=== PATIENT | female | born 1955 | race American Indian/Alaskan Native ===

== ENCOUNTER 2017-02-25 09:00 | Emergency (ER) | payer OTHER ==
[2017-02-25 09:11] VITALS: BP 167/102
--- NOTE | 2017-02-25 09:26 | Emergency Department Report ---
Chief Complaint: Dizziness Stated Complaint: DIZZINESS Time Seen by Provider: 02/25/17 09:25 - HPI History of Present Illness: Patient care with her son and her son reports that patient woke up this morning and and feeling dizzy like the room is spinning around. Denies any headache. Denies any nausea or vomiting. Complaining of pain that is in her left shoulder. Blood pressures elevated and she is does not have any history of any medical problems. Denies any blurred vision. Denies any nausea or vomiting. Denies any chest pain or shortness of breath. - ROS Review of Systems: All systems are negative unless stated in HPI above - Exam Vital Signs: Vital Signs 02/25/17 09:08 Temperature 97 F L Pulse Rate 92 H Respiratory 22 Rate Blood Pressure 167/102 O2 Sat by Pulse 100 Oximetry Physical Exam: Gen.: This is a 61-year-old female well-nourished well-developed and nontoxic in appearance. Mini neurological exam: No facial drooping, GCS of 15, alert and oriented 3. Cardiovascular: S1, S2. Regular rate and rhythm MSE screening note: Focused history and physical exam performed. Due to findings the following was ordered:See mdm ED Medical Decision Making - Medical Decision Making MDM: Patient screened by provider in triage area. Appropriate protocol initiated and patient to be seen in main ED ED Disposition for MSE Condition: Stable
--- NOTE | 2017-02-25 09:54 | XRay Report ---
ROUTINE CHEST, TWO VIEWS: HISTORY: Short of breath. The trachea, heart, mediastinal contour, lung arcos and bony thorax are unremarkable. IMPRESSION: Unremarkable chest x-ray.
--- NOTE | 2017-02-25 11:05 | Cat Scan Report ---
CT HEAD WITHOUT CONTRAST: HISTORY: New onset dizziness, hypertension. Serial contiguous axial images were obtained through the cranium. Intravenous contrast material was not administered. The ventricles are normal in size and appearance. There is no mass effect or midline shift. No areas of abnormally increased or decreased attenuation are seen. No mass lesion is seen. The mastoid air cells and visualized portions of the sinuses are normal. IMPRESSION: Cranial CT scan within normal limits.
[2017-02-25 11:24] LABS: Anion Gap 18 mmol/L; Blood Urea Nitrogen 8 mg/dL (7-17); Calcium 9.5 mg/dL (8.4-10.2); Carbon Dioxide 25 mmol/L (22-30); Chloride 104.1 mmol/L (98-107); Glucose 101 mg/dL (65-100); Potassium 4.4 mmol/L (3.6-5.0); Sodium 143 mmol/L (137-145)
[2017-02-25 11:33] LABS: Red Blood Count 4.42 M/mm3 (3.65-5.03)
[2017-02-25 11:34] LABS: Basophils % (Auto) 1.2 % (0.0-1.8); Eosinophils % (Auto) 2.8 % (0.0-4.3); Hematocrit 33.9 % (30.3-42.9); Hemoglobin 10.6 gm/dl (10.1-14.3); Mean Corpuscular HGB Conc 31 % (30-34); Mean Corpuscular Volume 77 fl (79-97); Platelet Count 429 K/mm3 (140-440)
[2017-02-25 11:37] LABS: Mean Corpuscular Hemoglobin 24 pg (28-32); Red Cell Distribution Width 20.5 % (13.2-15.2)
[2017-02-25 22:55] LABS: Bacteria,Urine 1+ /HPF (Negative); Bilirubin,Urine NEG (Negative); Blood,Urine NEG (Negative); Ketones,Urine NEG (Negative); Leukocyte Esterase,Urine MOD (Negative); Mucus,Urine FEW /HPF; Nitrite,Urine NEG (Negative); Protein,Urine <15 mg/dL mg/dL (Negative); Urobilinogen,Urine < 2.0 mg/dL (<2.0)
== END 2017-02-25 11:00 | disposition left against medical advice (07) ==
LOC: ED 09:00
DX: R42 Dizziness and giddiness (principal); M25.512 Pain in left shoulder; Z53.21 Procedure and treatment not carried out due to patient leaving prior to being seen by health care provider
CPT/HCPCS: 36415; 70450; 71020; 80048; 81001; 84484; 85025; 93005; 93010

== ENCOUNTER 2017-02-25 21:19 | Inpatient (IN) | payer OTHER ==
[2017-02-25 22:17] LABS: Basophils % (Auto) 1.3 % (0.0-1.8); Eosinophils % (Auto) 2.6 % (0.0-4.3); Hematocrit 34.3 % (30.3-42.9); Hemoglobin 10.9 gm/dl (10.1-14.3); Mean Corpuscular HGB Conc 32 % (30-34); Mean Corpuscular Volume 77 fl (79-97); Platelet Count 421 K/mm3 (140-440); Red Blood Count 4.46 M/mm3 (3.65-5.03)
[2017-02-25 22:21] LABS: Mean Corpuscular Hemoglobin 24 pg (28-32)
[2017-02-25 22:30] LABS: Anion Gap 20 mmol/L; BUN/Creatinine Ratio 10; Blood Urea Nitrogen 8 mg/dL (7-17); Calcium 9.4 mg/dL (8.4-10.2); Carbon Dioxide 22 mmol/L (22-30); Chloride 99.7 mmol/L (98-107); Glucose 93 mg/dL (65-100); Potassium 4.5 mmol/L (3.6-5.0); Sodium 137 mmol/L (137-145)
--- NOTE | 2017-02-26 10:28 | Emergency Department Report ---
ED Chest Pain HPI - General Chief Complaint: Dizziness Stated Complaint: DIZZINESS Time Seen by Provider: 02/26/17 09:27 Source: patient, family Mode of arrival: Ambulatory Limitations: Language Barrier - History of Present Illness Initial Comments: 61-year-old female presents to Emergency department with complaint of chest pain palpitations and dizziness. Denies fevers chills nausea vomiting. Patient states that her symptoms have been ongoing for the last 24 hours. MD Complaint: chest pain Onset: during exertion Pain Location: substernal Severity: moderate Severity scale (0 -10): 0 Improves With: nothing Worsens With: nothing Treatments Prior to Arrival: none - Related Data Home Medications Medication Instructions Recorded Confirmed Last Taken Lisinopril [Zestril TAB] 40 mg PO QDAY 02/26/17 02/26/17 Unknown Tramadol HCl [traMADol ER 100 MG] 50 mg PO BID 02/26/17 02/26/17 Unknown amLODIPine [Norvasc] 10 mg PO DAILY 02/26/17 02/26/17 Unknown Allergies Allergy/AdvReac Type Severity Reaction Status Date / Time No Known Allergies Allergy Unverified 02/25/17 09:11 Heart Score - HEART Score History: Moderately suspicious EKG: Non-specific Age: 45-65 Risk factors: 1-2 risk factors Troponin: < normal limit HEART Score: 4 - Critical Actions Critical Actions: 0-3 pts:0.9-1.7%risk of adverse cardiac event.Candidate for discharge ED Review of Systems ROS: Stated complaint: DIZZINESS Other details as noted in HPI Comment: All other systems reviewed and negative Constitutional: denies: chills, fever ENT: denies: ear pain, throat pain Respiratory: denies: cough, shortness of breath, wheezing Cardiovascular: denies: chest pain, palpitations Endocrine: no symptoms reported Gastrointestinal: denies: abdominal pain, nausea, diarrhea Genitourinary: denies: urgency, dysuria, discharge Musculoskeletal: denies: back pain, joint swelling, arthralgia Skin: denies: rash, lesions Neurological: denies: headache, weakness, paresthesias Psychiatric: denies: anxiety, depression Hematological/Lymphatic: denies: easy bleeding, easy bruising ED Past Medical Hx - Past Medical History Previous Medical History?: No - Surgical History Past Surgical History?: No - Family History Family history: no significant - Social History Smoking Status: Never Smoker Substance Use Type: None - Medications Home Medications: Home Medications Medication Instructions Recorded Confirmed Last Taken Type Lisinopril [Zestril TAB] 40 mg PO QDAY 02/26/17 02/26/17 Unknown History Tramadol HCl [traMADol ER 100 MG] 50 mg PO BID 02/26/17 02/26/17 Unknown History amLODIPine [Norvasc] 10 mg PO DAILY 02/26/17 02/26/17 Unknown History ED Physical Exam - General Limitations: Language Barrier General appearance: alert, in no apparent distress - Head Head exam: Present: atraumatic, normocephalic - Eye Eye exam: Present: normal appearance - ENT ENT exam: Present: mucous membranes moist - Neck Neck exam: Present: normal inspection - Respiratory Respiratory exam: Present: normal lung sounds bilaterally. Absent: respiratory distress - Cardiovascular Cardiovascular Exam: Present: regular rate, normal rhythm. Absent: systolic murmur, diastolic murmur, rubs, gallop - GI/Abdominal GI/Abdominal exam: Present: soft, normal bowel sounds - Extremities Exam Extremities exam: Present: normal inspection - Back Exam Back exam: Present: normal inspection - Neurological Exam Neurological exam: Present: alert, oriented X3 - Psychiatric Psychiatric exam: Present: normal affect, normal mood - Skin Skin exam: Present: warm, dry, intact, normal color. Absent: rash ED Course Vital Signs 02/25/17 02/25/17 02/26/17 21:32 21:37 09:02 Temperature 98.5 F 98.4 F 97.6 F Pulse Rate 101 H 84 90 Respiratory 18 18 18 Rate Blood Pressure 155/86 155/86 Blood Pressure 170/100 [Left] O2 Sat by Pulse 97 100 100 Oximetry 02/26/17 02/26/17 11:23 11:27 Temperature 97.8 F Pulse Rate 78 78 Respiratory 18 Rate Blood Pressure 197/81 Blood Pressure 197/81 [Left] O2 Sat by Pulse 99 Oximetry ED Medical Decision Making - Lab Data Result diagrams: 02/25/17 21:50 02/25/17 21:50 Laboratory Results - last 24 hr 02/25/17 02/25/17 02/26/17 21:50 21:50 00:13 WBC 7.0 RBC 4.46 Hgb 10.9 Hct 34.3 MCV 77 L MCH 24 L MCHC 32 RDW 21.0 H Plt Count 421 Lymph % (Auto) 32.8 [place] % (Auto) 9.4 H Eos % (Auto) 2.6 Baso % (Auto) 1.3 Lymph # 2.3 [place] # 0.7 Eos # 0.2 Baso # 0.1 Seg Neutrophils % 53.9 Seg Neutrophils # 3.8 Sodium 137 Potassium 4.5 Chloride 99.7 Carbon Dioxide 22 Anion Gap 20 BUN 8 Creatinine 0.8 D Estimated GFR > 60 BUN/Creatinine Ratio 10 Glucose 93 Calcium 9.4 Troponin T < 0.010 < 0.010 02/26/17 03:56 WBC RBC Hgb Hct MCV MCH MCHC RDW Plt Count Lymph % (Auto) [place] % (Auto) Eos % (Auto) Baso % (Auto) Lymph # [place] # Eos # Baso # Seg Neutrophils % Seg Neutrophils # Sodium Potassium Chloride Carbon Dioxide Anion Gap BUN Creatinine Estimated GFR BUN/Creatinine Ratio Glucose Calcium Troponin T < 0.010 - EKG Data -: EKG Interpreted by Me - EKG Data 02/26/17 10:31 Sinus rate at 99 normal axis normal intervals likely LVH no ST-T wave changes - Medical Decision Making 7-year-old female here with chest pain palpitations and dizziness. History is somewhat difficult to obtain and was mostly obtained from daughter. Patient has had chest pain and shortness of breath. Is unclear to me if she's had recent cardiac evaluation. Plan to treat her as a rule out ACS and admit for further evaluation and risk stratification and chest pain. Portions of this chart were dictated with dictation software. There may be dictation errors contained within this note. Critical care attestation.: If time is entered above; I have spent that time in minutes in the direct care of this critically ill patient, excluding procedure time. ED Disposition Clinical Impression: Chest pain Disposition: - OP ADMIT IP TO THIS HOSP Is pt being admited?: Yes Condition: Stable Instructions: Chest Pain (ED) Referrals: PRIMARY CARE, [Primary Care Provider] - 3-5 Days
[2017-02-26] MEDS ORDERED: ASPIRIN PO ONE (10:29)
[2017-02-26 11:07] LABS: Bilirubin,Urine NEG (Negative); Blood,Urine SM (Negative); Ketones,Urine NEG (Negative); Leukocyte Esterase,Urine LG (Negative); Nitrite,Urine NEG (Negative); Protein,Urine <15 mg/dL mg/dL (Negative); Urobilinogen,Urine < 2.0 mg/dL (<2.0)
--- NOTE | 2017-02-26 11:24 | History and Physical Report ---
<SKIP GELLER - Last Filed: 02/26/17 12:50> History of Present Illness Date of examination: 02/26/17 Date of admission: 02/26/2017 Chief complaint: Chest pain and dizziness History of present illness: Patient is a 61-year-old female with past medical history of hypertension, H.pylori and chronic left shoulder pain, who presents to emergency department for complaining of midsternal chest pain. She states that the pain began yesterday morning constant midsternal chest pain. The pain was located over her substerna somewhat in the left epigastric area. She describes the quality as a chest tightness and burning with radiation to the shoulder, arm , back, and neck. It has been a constant pain since it started yesterday. The painful episodes did not increase in intensity or severity during this time. Patient rated her pain level 5/10 at present time. Patient reported begin lightheaded, dizziness include heart palpitations. At the ED the patient was given ASA which she claims helped alleviate the pain somewhat. No aggravating factors. She denies shortness of breath, diaphoresis, nausea and vomiting during these episodes of pain. She has had no prior cardiac workup. Patient she is from [facility], she speaks limited [place] but her daughter at bedside and she speaks [place] well. Past History Past Medical History: hypertension Past Surgical History: No surgical history Social history: , lives with family. denies: smoking, alcohol abuse Family history: CAD, hypertension Medications and Allergies Allergies Allergy/AdvReac Type Severity Reaction Status Date / Time No Known Allergies Allergy Unverified 02/25/17 09:11 Home Medications Medication Instructions Recorded Confirmed Last Taken Type Lisinopril [Zestril TAB] 40 mg PO QDAY 02/26/17 02/26/17 Unknown History Tramadol HCl [traMADol ER 100 MG] 50 mg PO BID 02/26/17 02/26/17 Unknown History amLODIPine [Norvasc] 10 mg PO DAILY 02/26/17 02/26/17 Unknown History Active Meds: Active Medications Acetaminophen (Tylenol) 650 mg PO Q4H PRN PRN Reason: Pain MILD(1-3)/Fever >100.5/CHAVEZ Amlodipine Besylate (Norvasc) 10 mg PO DAILY EDUARDO Bisacodyl (Dulcolax) 10 mg FL QDAY PRN PRN Reason: Constipation unrelieved by MOM Enoxaparin Sodium (Lovenox) 40 mg SUB-Q QDAY [facility] Lisinopril (Zestril) 40 mg PO QDAY [facility] Morphine Sulfate (Morphine) 2 mg IV Q4H PRN PRN Reason: Pain, Moderate (4-6) Review of Systems Constitutional: no weight loss, no weight gain, no fever, no chills Ears, nose, mouth and throat: no decreased hearing, no nose pain, no nasal congestion, no nasal discharge, no sinus pressure Breasts: no change in shape, no swelling, no mass Cardiovascular: chest pain, lightheadedness, no palpitations, no shortness of breath, no dyspnea on exertion, no paroxysmal nocturnal dyspnea Respiratory: no cough, no shortness of breath, no dyspnea on exertion, no congestion, no sleep apnea Gastrointestinal: no abdominal pain, no nausea, no vomiting, no diarrhea Genitourinary Female: no dysuria, no urinary frequency, no urgency, no stress incontinence, no post void dribbling Menstruation: postmenopausal Rectal: no incontinence, no bleeding Musculoskeletal: no neck stiffness, no neck pain, no shooting arm pain, no arm numbness/tingling, no low back pain Integumentary: no redness, no sores, no wounds, no jaundice, no boils Neurological: no parathesias, no numbness, no tingling, no seizures, no syncope Psychiatric: no change in sleep habits, no sleep disturbances, no insomnia, no hypersomnia, no change in appetite, no change in libido, no suicidal ideation Endocrine: no excessive thirst, no polydipsia, no polyuria, no nocturia, no excessive sweating Hematologic/Lymphatic: no easy bruising, no easy bleeding Allergic/Immunologic: no urticaria, no allergic rhinitis Exam - Constitutional Vitals: Temp Pulse Resp BP Pulse Ox 97.8 F 78 18 197/81 99 02/26/17 11:23 02/26/17 11:23 02/26/17 11:23 02/26/17 11:23 02/26/17 11:23 General appearance: Present: no acute distress - EENT Eyes: Present: PERRL ENT: hearing intact - Neck Neck: Present: supple - Respiratory Respiratory: bilateral: CTA - Cardiovascular Rhythm: regular Heart Sounds: Present: S1 & S2 - Extremities Extremities: no ischemia - Abdominal General gastrointestinal: Present: soft, non-tender Female genitourinary: Present: deferred - Rectal Rectal Exam: deferred - Integumentary Integumentary: Present: clear, warm, dry - Musculoskeletal Musculoskeletal: strength equal bilaterally - Psychiatric Psychiatric: appropriate mood/affect - Neurologic Neurologic: CNII-XII intact - Allied Health Allied health notes reviewed: nursing Results - Labs CBC & Chem 7: 02/25/17 21:50 02/25/17 21:50 Labs: Laboratory Last Values WBC 7.0 K/mm3 (4.5-11.0) 02/25/17 21:50 RBC 4.46 M/mm3 (3.65-5.03) 02/25/17 21:50 Hgb 10.9 gm/dl (10.1-14.3) 02/25/17 21:50 Hct 34.3 % (30.3-42.9) 02/25/17 21:50 MCV 77 fl (79-97) L 02/25/17 21:50 MCH 24 pg (28-32) L 02/25/17 21:50 MCHC 32 % (30-34) 02/25/17 21:50 RDW 21.0 % (13.2-15.2) H 02/25/17 21:50 Plt Count 421 K/mm3 (140-440) 02/25/17 21:50 Lymph % (Auto) 32.8 % (13.4-35.0) 02/25/17 21:50 [place] % (Auto) 9.4 % (0.0-7.3) H 02/25/17 21:50 Eos % (Auto) 2.6 % (0.0-4.3) 02/25/17 21:50 Baso % (Auto) 1.3 % (0.0-1.8) 02/25/17 21:50 Lymph # 2.3 K/mm3 (1.2-5.4) 02/25/17 21:50 [place] # 0.7 K/mm3 (0.0-0.8) 02/25/17 21:50 Eos # 0.2 K/mm3 (0.0-0.4) 02/25/17 21:50 Baso # 0.1 K/mm3 (0.0-0.1) 02/25/17 21:50 Seg Neutrophils % 53.9 % (40.0-70.0) 02/25/17 21:50 Seg Neutrophils # 3.8 K/mm3 (1.8-7.7) 02/25/17 21:50 Sodium 137 mmol/L (137-145) 02/25/17 21:50 Potassium 4.5 mmol/L (3.6-5.0) 02/25/17 21:50 Chloride 99.7 mmol/L (98-107) 02/25/17 21:50 Carbon Dioxide 22 mmol/L (22-30) 02/25/17 21:50 Anion Gap 20 mmol/L 02/25/17 21:50 BUN 8 mg/dL (7-17) 02/25/17 21:50 Creatinine 0.8 mg/dL (0.7-1.2) D 02/25/17 21:50 Estimated GFR > 60 ml/min 02/25/17 21:50 BUN/Creatinine Ratio 10 % 02/25/17 21:50 Glucose 93 mg/dL (65-100) 02/25/17 21:50 Calcium 9.4 mg/dL (8.4-10.2) 02/25/17 21:50 Troponin T < 0.010 ng/mL (0.00-0.029) 02/26/17 03:56 Urine Color Yellow (Yellow) 02/26/17 10:21 Urine Turbidity Clear (Clear) 02/26/17 10:21 Urine pH 6.0 (5.0-7.0) 02/26/17 10:21 Ur Specific [place] 1.009 (1.003-1.030) 02/26/17 10:21 Urine Protein <15 mg/dl mg/dL (Negative) 02/26/17 10:21 Urine Glucose (UA) Neg mg/dL (Negative) 02/26/17 10:21 Urine Ketones Neg mg/dL (Negative) 02/26/17 10:21 Urine Blood Sm (Negative) 02/26/17 10:21 Urine Nitrite Neg (Negative) 02/26/17 10:21 Urine Bilirubin Neg (Negative) 02/26/17 10:21 Urine Urobilinogen < 2.0 mg/dL (<2.0) 02/26/17 10:21 Ur Leukocyte Esterase Lg (Negative) 02/26/17 10:21 Urine WBC (Auto) 29.0 /HPF (0.0-6.0) H 02/26/17 10:21 Urine RBC (Auto) 14.0 /HPF (0.0-6.0) 02/26/17 10:21 U Epithel Cells (Auto) 6.0 /HPF (0-13.0) 02/26/17 10:21 Ur Transition Epith Cell 1 /HPF 02/26/17 10:21 Urine Yeast (Budding) 1+ /HPF 02/26/17 10:21 Assessment and Plan Assessment and plan: Patient is a 61-year-old female with past medical history of hypertension, H.pylori and chronic left shoulder pain, who presents to emergency department for complaining of midsternal chest pain. She states that the pain began yesterday morning constant midsternal chest pain. The pain was located over her substerna somewhat in the left epigastric area. She describes the quality as a chest tightness and burning with radiation to the shoulder, arm , back, and neck. Chest Pain We will admit to telemetry floor. EKG normal sinus rate [address] elevation or T-wave inversion. Negative cardiac enzyme X2 Start on aspirin Nitroglycerin when necessary Morphine ordered for pain Stress test ordered. Urinary Tract Infection Urine culture collected and follow urine cultures initiated empiric treatment IV Rocephin IV fluid hydration Supportive care. Urinary Tract Infection Follow urine cultures Continue on Rocephin IV fluid hydration Hypertension Resume on home antihypertensive medication IV hydralazine for SBP >160 Closely monitor blood pressure H. pylori H.pylori AG ordered and we will follow up findings Started on IV Protonix for now DVT/Prophylaxis Lovenox Advance Directives: Yes VTE prophylaxis?: Chemical Contraindication Mechanical VTE Prophylaxis: Treatment Not Indicated Plan of care discussed with patient/family: Yes <JUSTIN DE SANTIAGO - Last Filed: 02/26/17 15:32> History of Present Illness Date of admission: 02/26/17 11:19 Medications and Allergies Active Meds: Active Medications Acetaminophen (Tylenol) 650 mg PO Q4H PRN PRN Reason: Pain MILD(1-3)/Fever >100.5/CHAVEZ Amlodipine Besylate (Norvasc) 10 mg PO DAILY EDUARDO Aspirin (Aspirin) 325 mg PO DAILY [facility] Bisacodyl (Dulcolax) 10 mg [place] QDAY PRN PRN Reason: Constipation unrelieved by MOM Enoxaparin Sodium (Lovenox) 40 mg SUB-Q QDAY [facility] Hydralazine HCl (Apresoline) 10 mg IV Q4H PRN PRN Reason: Blood Pressure Sodium Chloride (Nacl 0.9% 1000 Ml) 1,000 mls @ 75 mls/hr IV DIRECT EDUARDO Ceftriaxone Sodium (Rocephin/Ns 1 Gm/50 Ml) 1 gm in 50 mls @ 100 mls/hr IV Q24HR EDUARDO PRN Reason: Protocol Lisinopril (Zestril) 40 mg PO QDAY [facility] Morphine Sulfate (Morphine) 2 mg IV Q4H PRN PRN Reason: Pain, Moderate (4-6) Nitroglycerin (Nitrostat) 0.4 mg SL .Q5MIN PRN PRN Reason: Chest Pain Pantoprazole Sodium (Protonix) 40 mg IV BID [facility] Exam - Constitutional Vitals: Temp Pulse Resp BP Pulse Ox 97.8 F 80 18 155/58 99 02/26/17 11:23 02/26/17 12:23 02/26/17 12:23 02/26/17 12:23 02/26/17 11:23 Results - Labs CBC & Chem 7: 02/25/17 21:50 02/25/17 21:50 Labs: Laboratory Last Values WBC 7.0 K/mm3 (4.5-11.0) 02/25/17 21:50 RBC 4.46 M/mm3 (3.65-5.03) 02/25/17 21:50 Hgb 10.9 gm/dl (10.1-14.3) 02/25/17 21:50 Hct 34.3 % (30.3-42.9) 02/25/17 21:50 MCV 77 fl (79-97) L 02/25/17 21:50 MCH 24 pg (28-32) L 02/25/17 21:50 MCHC 32 % (30-34) 02/25/17 21:50 RDW 21.0 % (13.2-15.2) H 02/25/17 21:50 Plt Count 421 K/mm3 (140-440) 02/25/17 21:50 Lymph % (Auto) 32.8 % (13.4-35.0) 02/25/17 21:50 [place] % (Auto) 9.4 % (0.0-7.3) H 02/25/17 21:50 Eos % (Auto) 2.6 % (0.0-4.3) 02/25/17 21:50 Baso % (Auto) 1.3 % (0.0-1.8) 02/25/17 21:50 Lymph # 2.3 K/mm3 (1.2-5.4) 02/25/17 21:50 [place] # 0.7 K/mm3 (0.0-0.8) 02/25/17 21:50 Eos # 0.2 K/mm3 (0.0-0.4) 02/25/17 21:50 Baso # 0.1 K/mm3 (0.0-0.1) 02/25/17 21:50 Seg Neutrophils % 53.9 % (40.0-70.0) 02/25/17 21:50 Seg Neutrophils # 3.8 K/mm3 (1.8-7.7) 02/25/17 21:50 Sodium 137 mmol/L (137-145) 02/25/17 21:50 Potassium 4.5 mmol/L (3.6-5.0) 02/25/17 21:50 Chloride 99.7 mmol/L (98-107) 02/25/17 21:50 Carbon Dioxide 22 mmol/L (22-30) 02/25/17 21:50 Anion Gap 20 mmol/L 02/25/17 21:50 BUN 8 mg/dL (7-17) 02/25/17 21:50 Creatinine 0.8 mg/dL (0.7-1.2) D 02/25/17 21:50 Estimated GFR > 60 ml/min 02/25/17 21:50 BUN/Creatinine Ratio 10 % 02/25/17 21:50 Glucose 93 mg/dL (65-100) 02/25/17 21:50 Calcium 9.4 mg/dL (8.4-10.2) 02/25/17 21:50 Troponin T < 0.010 ng/mL (0.00-0.029) 02/26/17 03:56 Urine Color Yellow (Yellow) 02/26/17 10:21 Urine Turbidity Clear (Clear) 02/26/17 10:21 Urine pH 6.0 (5.0-7.0) 02/26/17 10:21 Ur Specific [place] 1.009 (1.003-1.030) 02/26/17 10:21 Urine Protein <15 mg/dl mg/dL (Negative) 02/26/17 10:21 Urine Glucose (UA) Neg mg/dL (Negative) 02/26/17 10:21 Urine Ketones Neg mg/dL (Negative) 02/26/17 10:21 Urine Blood Sm (Negative) 02/26/17 10:21 Urine Nitrite Neg (Negative) 02/26/17 10:21 Urine Bilirubin Neg (Negative) 02/26/17 10:21 Urine Urobilinogen < 2.0 mg/dL (<2.0) 02/26/17 10:21 Ur Leukocyte Esterase Lg (Negative) 02/26/17 10:21 Urine WBC (Auto) 29.0 /HPF (0.0-6.0) H 02/26/17 10:21 Urine RBC (Auto) 14.0 /HPF (0.0-6.0) 02/26/17 10:21 U Epithel Cells (Auto) 6.0 /HPF (0-13.0) 02/26/17 10:21 Ur Transition Epith Cell 1 /HPF 02/26/17 10:21 Urine Yeast (Budding) 1+ /HPF 02/26/17 10:21 Assessment and Plan Assessment and plan: I was unable to see this patient as she left AMA.
[2017-02-26] MEDS ORDERED: NORVASC PO ONE (11:25)
[2017-02-26] MEDS ORDERED: NORVASC ONE ×2 (11:28→11:29)
[2017-02-26] MEDS ORDERED: APRESOLINE IV PRN (12:00)
[2017-02-26] MEDS ORDERED: NACL 0.9% 1000 ML 1,000 ML IV SCH (12:00)
[2017-02-26] MEDS ORDERED: MORPHINE IV PRN (12:00)
[2017-02-26] MEDS ORDERED: TYLENOL PO PRN (12:00)
[2017-02-26] MEDS ORDERED: NITROSTAT SL PRN (12:00)
[2017-02-26] MEDS ORDERED: DULCOLAX PR PRN (12:00)
[2017-02-26 12:23] VITALS: BP 155/58
[2017-02-26] MEDS ORDERED: PROTONIX PO SCH (22:00)
[2017-02-26] MEDS ORDERED: PROTONIX IV SCH (22:00)
[2017-02-27] MEDS ORDERED: LOVENOX SUB-Q SCH (10:00)
[2017-02-27] MEDS ORDERED: ROCEPHIN/NS 1 GM/50 ML 1 GM/50 ML BAG IV SCH (10:00)
[2017-02-27] MEDS ORDERED: NORVASC PO SCH (10:00)
[2017-02-27] MEDS ORDERED: ZESTRIL PO SCH (10:00)
[2017-02-27] MEDS ORDERED: ASPIRIN PO SCH (10:00)
== END 2017-02-26 13:00 | disposition left against medical advice (07) | DRG 690 ==
LOC: ED 21:19 → 4A 02-26 11:19
PROVIDERS: ADMIT Internal Medicine; ATTEND Internal Medicine
DX: N39.0 Urinary tract infection, site not specified (principal); R07.89 Other chest pain; I10 Essential (primary) hypertension; G89.29 Other chronic pain; B96.81 Helicobacter pylori [H. pylori] as the cause of diseases classified elsewhere; M25.512 Pain in left shoulder; Z82.49 Family history of ischemic heart disease and other diseases of the circulatory system; Z79.899 Other long term (current) drug therapy; Z53.21 Procedure and treatment not carried out due to patient leaving prior to being seen by health care provider
CPT/HCPCS: 36415; 80048; 81001; 84484; 85025; 87086; 93005; 93010